=== PATIENT | female | born 2000 | race Caucasian/White ===

== ENCOUNTER 2020-06-01 20:36 | Inpatient (IN) ==
[2020-06-01] MEDS ORDERED: Naloxone 0.4 MG/ML INJ IVP PRN ×2 (20:45→21:36)
[2020-06-01] MEDS ORDERED: Lidocaine 1% 20 ML MDV INFILT PRN (20:45)
[2020-06-01] MEDS ORDERED: Ringers Solution, Lactated 1,000 ML IVC SCH (20:45)
[2020-06-01] MEDS ORDERED: Metoclopramide 10 MG/2 ML VIAL IVP PRN (20:45)
[2020-06-01] MEDS ORDERED: Famotidine 20 MG/2 ML VIAL IVP PRN (20:45)
[2020-06-01] MEDS ORDERED: Azithromycin 500 MG in 0.9 % Sodium Chloride 250 ML IVPB ONE (20:45)
[2020-06-01] MEDS ORDERED: *HR* FentaNYL (PF) 100 MCG/2 ML VIAL IVP PRN (20:45)
[2020-06-01] MEDS ORDERED: Ondansetron 4 MG/2 ML VIAL IVP PRN ×2 (20:45→21:36)
[2020-06-01 21:26] LABS: Basophils % 0.4 %; Eosinophils # 0.1 K/mcL (0.0-0.6); Eosinophils % 0.5 %; Hematocrit 39.5 % (35.3-44.9); Hemoglobin 12.9 g/dL (11.5-15.4); Immature Granulocytes % 1.1 % (0-4); Lymphocytes % 20.1 %; Mean Corpuscular HGB Conc 32.7 g/dL (31.6-35.5); Mean Corpuscular Volume 88.8 fL (83.0-100.0); Mean Platelet Volume 11.4 fL (9.4-12.4); Monocytes # 0.7 K/mcL (0.0-1.3); Monocytes % 6.7 %; Neutrophils # 7.2 K/mcL (1.6-8.9); Platelet Count 200 K/mcL (140-400); Red Blood Count 4.45 M/mcL (3.82-4.97); Red Cell Distribution Width 14.2 % (11.5-14.5); Segmented Neutrophils % 71.2 %; White Blood Count 10.1 K/mcL (4.3-11.1)
[2020-06-01] MEDS ORDERED: EPHEDrine 50 MG/ML VIAL IVP PRN (21:36)
[2020-06-01] MEDS ORDERED: Ropivacaine/PF 0.2% 20 ML VIAL EP ONE (21:36)
[2020-06-01 21:40] LABS: Amphetamine Screen,Urine Negative ng/mL (Cutoff=1000)
[2020-06-01 21:41] LABS: Barbiturate Screen,Urine Negative ng/mL (Cutoff=200); Benzodiazepines Screen,Urine Negative ng/mL (Cutoff=300); Cannabinoid Screen,Urine Negative ng/mL (Cutoff = 50); Cocaine Screen,Urine Negative ng/mL (Cutoff= 300); Opiate Screen,Urine Negative ng/mL (Cutoff=300)
[2020-06-01 21:42] LABS: Phencyclidine Screen,Urine Negative ng/mL (Cutoff=25)
[2020-06-01] MEDS ORDERED: Epidural Premix (fent/bupiv) 110 ML EP SCH (21:45)
[2020-06-01] MEDS: Oxytocin 20 units/ LR 1000 mL 20 UNIT/1,000 ML BAG IVC SCH (22:10)
[2020-06-02] MEDS ORDERED: Ropivacaine/PF 0.2% 20 ML VIAL ONE (03:56)
[2020-06-02] MEDS: Oxytocin 20 units/ LR 1000 mL 20 UNIT/1,000 ML BAG IVC SCH (11:20)
[2020-06-02] MEDS ORDERED: Oxytocin 20 units/ LR 1000 mL 20 UNIT/1,000 ML BAG IVC ONE (13:41)
[2020-06-02] MEDS ORDERED: Rho Immune Globulin 1,500 UNIT SYRINGE IM PRN (13:41)
[2020-06-02] MEDS ORDERED: Ibuprofen 600 MG TABLET PO PRN (13:41)
[2020-06-02] MEDS ORDERED: Measles/Mumps/Rubella Vacc 0.5 ML VIAL SQ PRN (13:41)
[2020-06-02] MEDS ORDERED: Oxytocin 20 units/ LR 1000 mL 20 UNIT/1,000 ML BAG IVC SCH (13:41)
[2020-06-02] MEDS ORDERED: Acetaminophen 325 MG TABLET PO PRN (13:41)
[2020-06-03 04:08] LABS: Basophils # 0.1 K/mcL (0.0-0.2); Basophils % 0.5 %; Eosinophils # 0.1 K/mcL (0.0-0.6); Eosinophils % 0.5 %; Hematocrit 35.2 % (35.3-44.9); Lymphocytes # 2.6 K/mcL (0.6-4.6); Lymphocytes % 20.2 %; Mean Corpuscular HGB Conc 31.8 g/dL (31.6-35.5); Mean Corpuscular Hemoglobin 28.6 pg (28.0-33.3); Mean Corpuscular Volume 89.8 fL (83.0-100.0); Mean Platelet Volume 11.5 fL (9.4-12.4); Monocytes # 0.8 K/mcL (0.0-1.3); Monocytes % 6.1 %; Neutrophils # 9.2 K/mcL (1.6-8.9); Platelet Count 174 K/mcL (140-400); Red Blood Count 3.92 M/mcL (3.82-4.97); Red Cell Distribution Width 14.4 % (11.5-14.5); Segmented Neutrophils % 71.7 %; White Blood Count 12.9 K/mcL (4.3-11.1)
[2020-06-03 04:12] LABS: Hemoglobin 11.2 g/dL (11.5-15.4)
[2020-06-03 07:44] VITALS: BP 104/67
[2020-06-03] MEDS ORDERED: Prenatal Vit/FA 1 EACH TABLET PO SCH (09:00)
== END 2020-06-03 13:19 | disposition home or self-care (01) | DRG 560 ==
LOC: 1NENULAB 20:36 → 1NENUOBS 06-02 12:51
PROVIDERS: ADMIT Obstetrics & Gynecology; ATTEND Obstetrics & Gynecology